=== PATIENT | male | born 1975 | race Caucasian/White ===

== ENCOUNTER 2016-08-14 12:11 | Emergency (ER) | payer SELFPAY ==
[2016-08-14 12:42] VITALS: RESP 18; TEMP 97.8; O2SAT 99
[2016-08-14] MEDS ORDERED: KETOROLAC TROMETHAMINE 30 MG/ML SOL IM ONE (12:51)
[2016-08-14] MEDS ORDERED: KETOROLAC TROMETHAMINE 30 MG/ML SOL ONE (12:57)
[2016-08-14 13:06] VITALS: BP 118/72; PULSE 88
== END 2016-08-14 13:08 | disposition home or self-care (01) | DRG 563 ==
LOC: ED 12:11
DX: S46.912A Strain of unspecified muscle, fascia and tendon at shoulder and upper arm level, left arm, initial encounter (principal); X50.0XXA Overexertion from strenuous movement or load, initial encounter
CPT/HCPCS: 96372; 99282; 99283; J1885

== ENCOUNTER 2016-12-30 13:50 | Emergency (ER) | payer SELFPAY ==
[2016-12-30] MEDS ORDERED: SODIUM CHLORIDE 0.9% 1000ML 1,000 ML IV ONE (13:52)
[2016-12-30 13:57] VITALS: TEMP 98
[2016-12-30 14:15] LABS: BASOPHILS % (AUTO) 1 % (0-3); EOSINOPHILS % (AUTO) 2 % (0-9); HEMATOCRIT 47 % (39-53); MEAN CORPUSCULAR HGB CONC 34.4 gm/dl (32.0-36.0); MEAN CORPUSCULAR VOLUME 92 fL (80-100); NEUTROPHILS % (AUTO) 74.4 % (37-80)
[2016-12-30] MEDS ORDERED: TDAP VACCINE 0.5 ML SUS IM ONE ×2 (14:22→14:28)
[2016-12-30 14:29] LABS: CALCIUM 9.4 mg/dl (8.5-10.1)
[2016-12-30 14:41] LABS: POTASSIUM 4.4 mMol/L (3.5-5.1)
[2016-12-30 14:55] LABS: APPEARANCE,URINE Cloudy; BILIRUBIN,URINE NEGATIVE (NEGATIVE); COLOR,URINE Yellow; GLUCOSE, URINE (UA) NEGATIVE (NEGATIVE); KETONES,URINE NEGATIVE (NEGATIVE); LEUKOCYTE ESTERASE ,URINE NEGATIVE (NEGATIVE); NITRATE,URINE NEGATIVE (NEGATIVE); OCCULT BLOOD,URINE NEGATIVE (NEG-TRACE); UROBILINOGEN,URINE 0.2 (0.2-1.0 EU)
[2016-12-30 15:08] LABS: RBC,URINE NEG (0-3AV/HPF); WBC,URINE 0-1 (0-5AV/HPF)
[2016-12-30 15:09] LABS: AMPHETAMINES NEGATIVE (NEGATIVE); METHADONE NEGATIVE (NEGATIVE); OPIATES(OP13) NEGATIVE (NEGATIVE); OXYCODONE(OXY) NEGATIVE (NEGATIVE); PROPOXYPHENE(PPX) NEGATIVE (NEGATIVE); TRICYCLIC ANTIDEPRESSANTS NEGATIVE (NEGATIVE)
[2016-12-30 16:00] VITALS: BP 134/81; PULSE 77; RESP 12; O2SAT 96
== END 2016-12-30 15:12 | disposition short-term general hospital (02) | DRG 605 ==
LOC: ED 13:50
DX: S71.111A Laceration without foreign body, right thigh, initial encounter (principal); M25.521 Pain in right elbow; S01.81XA Laceration without foreign body of other part of head, initial encounter; X99.8XXA Assault by other sharp object, initial encounter; W22.8XXA Striking against or struck by other objects, initial encounter
CPT/HCPCS: 70450; 71010; 73070; 75635; 80048; 80305; 81001; 85025; 90471; 90715; 96365; 99285; 99291; Q9967; A6232; A6402